=== PATIENT | female | born 1980 | race American Indian/Alaskan Native ===

== ENCOUNTER 2017-12-30 19:02 | Emergency (ER) | payer OTHER ==
[2017-12-30 19:34] VITALS: BP 126/95
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
[2017-12-30 22:25] LABS: HCG Qualitative,Urine Negative (Negative)
[2017-12-30 22:28] LABS: Bacteria,Urine 1+ /HPF (Negative); Bilirubin,Urine NEG (Negative); Blood,Urine NEG (Negative); Color,Urine Yellow (Yellow); Mucus,Urine FEW /HPF; Protein,Urine <15 mg/dL mg/dL (Negative)
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
== END 2017-12-31 08:18 | disposition left against medical advice (07) ==
LOC: ED 19:02
DX: S09.90XA Unspecified injury of head, initial encounter (principal); H57.11 Ocular pain, right eye; H92.02 Otalgia, left ear; M25.512 Pain in left shoulder; M54.5 Low back pain; M54.2 Cervicalgia; Y04.0XXA Assault by unarmed brawl or fight, initial encounter; Y93.89 Activity, other specified; Y92.89 Other specified places as the place of occurrence of the external cause; Y99.8 Other external cause status
CPT/HCPCS: 70150; 72125; 81001; 81025; 99284